=== PATIENT | female | born 1990 | race African-American/Black ===

== ENCOUNTER 2017-10-17 12:11 | Emergency (ER) | payer MEDICAID ==
[~2017-10-17] VITALS: Ht 152.4 cm; Wt 72.0 kg
[2017-10-17 14:25] LABS: CLARITY URINE CLEAR (CLEAR); COLOR URINE YELLOW (YELLOW); KETONES URINE NEGATIVE (NEGATIVE); LEUKOCYTE ESTERASE URINE NEGATIVE (NEGATIVE); NITRITE URINE NEGATIVE (NEGATIVE); OCCULT BLOOD URINE NEGATIVE (NEGATIVE); PROTEIN URINE NEGATIVE (NEGATIVE); SPECIFIC GRAVITY URINE 1.027 (1.005-1.030)
[2017-10-17 17:40] VITALS: BP 148/88
== END 2017-10-17 18:29 | disposition left against medical advice (07) ==
LOC: ER 14:55
DX: R10.2 Pelvic and perineal pain (principal); F12.10 Cannabis abuse, uncomplicated
CPT/HCPCS: 76830; 76856; 81003; 81025; 99285